=== PATIENT | male | born 1985 | race Asian ===

== ENCOUNTER 2021-04-08 12:54 | Emergency (ER) | payer OTHER ==
[2021-04-08 13:35] VITALS: BP 150/91; PULSE 82; TEMP 98.2; BMI 43.0
[2021-04-08] MEDS ORDERED: SODIUM CHLORIDE 0.9% 500 ML INFUS.BAG IV ONE (14:00)
[2021-04-08] MEDS ORDERED: FAMOTIDINE 20 MG/50 ML IVPB 20 MG/50 ML MG IVPB ONE ×2 (14:00→14:16)
[2021-04-08] MEDS ORDERED: ONDANSETRON 4 MG/2 ML VIAL IVPUSH ONE (14:00)
[2021-04-08] MEDS ORDERED: KETOROLAC TROMETHAMINE 30 MG/1 ML VIAL IVPUSH ONE (14:01)
[2021-04-08] MEDS ORDERED: KETOROLAC TROMETHAMINE 30 MG/1 ML VIAL ONE ×2 (14:16→14:24)
[2021-04-08] MEDS ORDERED: ONDANSETRON 4 MG/2 ML VIAL ONE ×2 (14:16→14:24)
[2021-04-08 15:03] LABS: EPI CELLS 8 /uL (0-25.1); HYALINE CASTS 0 /uL (0-3.1); PH,URINE >= 9.0 (5.0-8.0); URINE APPEARANCE CLEAR; URINE BACTERIA 23 /uL (0-1359); URINE BILIRUBIN NEGATIVE (NEGATIVE); URINE COLOR YELLOW; URINE GLUCOSE (UA) NEGATIVE (NEGATIVE); URINE KETONE NEGATIVE (NEGATIVE); URINE LEUK ESTERASE NEGATIVE (NEGATIVE); URINE NITRITE NEGATIVE (NEGATIVE); URINE PROTEIN TRACE (NEGATIVE); URINE RBC 2440 /uL (0-23.9); URINE UROBILINOGEN 0.2 mg/dL (0.2-1.0); URINE WBC 11 /uL (0-25.8)
[2021-04-08 15:05] LABS: BASO % 0.6 % (0-2.0); EOS % 0.2 % (0-4.5); HEMATOCRIT 41.8 % (35.4-49); HEMOGLOBIN 13.8 GM/dL (11.7-16.9); LYMPH % 18.8 % (8-40); MCH 24.4 pg (25.7-33.7); MEAN CELL VOLUME 73.7 fl (80-96); MEAN PLT VOLUME 10.4 fl (7.5-11.1); MONO % 7.2 % (3.8-10.2); NEUT % 73.2 % (42.8-82.8); PLATELET COUNT 233 10^3/uL (134-434); RBC 5.67 M/mm3 (4.00-5.60); RDW 15.9 % (11.9-15.9); WHITE BLOOD COUNT 11.3 K/mm3 (4.0-10.0)
[2021-04-08 15:29] LABS: ALBUMIN 3.3 g/dl (3.4-5.0); BLOOD UREA NITROGEN 15.5 mg/dL (7-18)
[2021-04-08 15:32] LABS: CREATININE 0.9 mg/dL (0.55-1.3)
[2021-04-08 15:33] LABS: BILIRUBIN,TOTAL 0.3 mg/dL (0.2-1); TOT PROT 7.4 g/dl (6.4-8.2)
== END 2021-04-08 17:13 | disposition home or self-care (01) ==
LOC: JER 12:54
PROC: 3E033NZ Introduction of Analgesics, Hypnotics, Sedatives into Peripheral Vein, Percutaneous Approach (ICD-10-PCS; principal; 2021-04-08)
PROC: 3E033GC Introduction of Other Therapeutic Substance into Peripheral Vein, Percutaneous Approach (ICD-10-PCS; 2021-04-08)
PROC: 3E0333Z Introduction of Anti-inflammatory into Peripheral Vein, Percutaneous Approach (ICD-10-PCS; 2021-04-08)
DX: R31.9 Hematuria, unspecified (principal); R10.9 Unspecified abdominal pain
CPT/HCPCS: 36415; 74177-TC; 80053; 81003; 83690; 85025; 99285-25; Q9967

== ENCOUNTER 2021-04-09 01:23 | Emergency (ER) | payer OTHER ==
[2021-04-09 01:33] VITALS: BP 121/83; PULSE 83; TEMP 98.1; BMI 43.0
[2021-04-09] MEDS ORDERED: FAMOTIDINE 20 MG TABLET ONE (01:43)
[2021-04-09] MEDS ORDERED: KETOROLAC TROMETHAMINE 60 MG/2 ML VIAL IM ONE (01:43)
[2021-04-09] MEDS ORDERED: KETOROLAC TROMETHAMINE 60 MG/2 ML VIAL ONE (01:44)
[2021-04-09] MEDS ORDERED: FAMOTIDINE 20 MG TABLET PO ONE (01:45)
== END 2021-04-09 01:53 | disposition home or self-care (01) ==
LOC: FER 01:23
PROC: 3E0233Z Introduction of Anti-inflammatory into Muscle, Percutaneous Approach (ICD-10-PCS; principal; 2021-04-09)
DX: R10.12 Left upper quadrant pain (principal)
CPT/HCPCS: 99284-25

== ENCOUNTER 2021-04-10 02:08 | Emergency (ER) | payer OTHER ==
[2021-04-10 02:15] VITALS: BP 134/86; PULSE 78; TEMP 98.1; BMI 43.0
[2021-04-10] MEDS ORDERED: KETOROLAC TROMETHAMINE 60 MG/2 ML VIAL ONE (02:18)
[2021-04-10] MEDS ORDERED: KETOROLAC TROMETHAMINE 60 MG/2 ML VIAL IM ONE (02:18)
== END 2021-04-10 02:29 | disposition home or self-care (01) ==
LOC: FER 02:08
PROC: 3E0233Z Introduction of Anti-inflammatory into Muscle, Percutaneous Approach (ICD-10-PCS; principal; 2021-04-10)
DX: R10.30 Lower abdominal pain, unspecified (principal)
CPT/HCPCS: 99284-25